=== PATIENT | female | born 1945 | race Caucasian/White ===

== ENCOUNTER 2018-09-27 15:27 | Outpatient (CLI) | payer MEDICARE | END 2018-09-28 | LOC: C.MRIC 15:27 | DX: G40.211 Localization-related (focal) (partial) symptomatic epilepsy and epileptic syndromes with complex partial seizures, intractable, with status epilepticus (principal); G31.84 Mild cognitive impairment of uncertain or unknown etiology; G31.1 Senile degeneration of brain, not elsewhere classified ==